=== PATIENT | male | born 1935 | race Hispanic/Latino ===

== ENCOUNTER → 2020-06-21 | Day surgery (SDC) | payer MEDICARE, OTHER ==
[~2020-06-21] MED LIST: ALLOPURINOL100 MG PO; ASPIRIN81 MG PO; BENZONATATE100 MG PO; FISH OIL 1,0001 EAC2 PO; FUROSEMIDE40 MG PO; LABETALOL HCL100 MG PO; LASIX10 MG/ML PO; LIPITOR10 MG PO; LOSARTAN POTASS25 MG PO
[2020-06-21 12:30] VITALS: BP 103/49
== END | disposition home or self-care (01) ==
LOC: OR 09:21
PROVIDERS: ATTEND Internal Medicine Gastroenterology
DX: K92.1 Melena (principal); D12.3 Benign neoplasm of transverse colon; K57.30 Diverticulosis of large intestine without perforation or abscess without bleeding; K64.8 Other hemorrhoids; I25.810 Atherosclerosis of coronary artery bypass graft(s) without angina pectoris; I10 Essential (primary) hypertension; Z95.1 Presence of aortocoronary bypass graft; E78.5 Hyperlipidemia, unspecified; D64.9 Anemia, unspecified; Z01.810 Encounter for preprocedural cardiovascular examination; Z01.812 Encounter for preprocedural laboratory examination; Z20.822 Contact with and (suspected) exposure to COVID-19; Z79.82 Long term (current) use of aspirin; Z95.0 Presence of cardiac pacemaker
CPT/HCPCS: 45378; 45384; 88305; 93005; U0002